=== PATIENT | female | born 1970 | race Hispanic/Latino ===

== ENCOUNTER 2019-04-17 22:05 | Emergency (ER) | payer SELFPAY ==
[2019-04-17 23:20] LABS: Urine Blood TRACE (NEG); Urine Glucose NEGATIVE (NEG); Urine Protein TRACE (NEG); Urine Specific Gravity 1.015 (1.005-1.030); Urine pH 8.5 (5.0-7.0)
[2019-04-17 23:22] LABS: Absolute Lymphocytes (CBC) 1.7 K/uL (0.7-4.9); Basophils % 0.5 % (0-1.3); Hematocrit 31.9 % (36.0-45.0); MPV 8.3 fL (7.6-11.3); RBC Red Blood Cell Count 3.65 M/uL (3.86-4.86)
[2019-04-17 23:33] LABS: ALT/SGPT 46 U/L (12-78); AST/SGOT 73 U/L (15-37); Albumin 3.6 g/dL (3.4-5.0); Alkaline Phosphatase 98 U/L (45-117); BUN Blood Urea Nitrogen 14 mg/dL (7-18); Bicarbonate 25 mmol/L (21-32); Bilirubin Direct < 0.1 mg/dL (0-0.2); Bilirubin Total 0.3 mg/dL (0.2-1.0); Glucose Level 121 mg/dL (74-106); Lipase 169 U/L (73-393); Protein, Total 7.4 g/dL (6.4-8.2); Sodium Level 140 mmol/L (136-145)
--- NOTE | 2019-04-18 00:59 | ER ---
Nurse's Notes [facility] Name: Fatoumata Meléndez Age: 48 yrs Sex: Female : 1970 Arrival Date: 04/17/2019 Time: 22:07 Bed 5 Private MD: Diagnosis: Cholelithiasis;Abdominal and pelvic pain Presentation: 04/17 22:19 Presenting complaint: Patient states: Abdominal pain that began at 2030 tonight; Denies lp1 any N/V, constipation, diarrhea; States pain is intermittent. Transition of care: patient was not received from another setting of care. Onset of symptoms was April 17, 2019 at 20:30. Risk Assessment: Do you want to hurt yourself or someone else? Patient reports no desire to harm self or others. Initial Sepsis Screen: Does the patient meet any 2 criteria? No. Patient's initial sepsis screen is negative. Does the patient have a suspected source of infection? No. Patient's initial sepsis screen is negative. Care prior to arrival: None. 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 - Social history:: Smoking status: Patient/guardian denies using tobacco. - Ebola Screening: : No symptoms or risks identified at this time. Screenin:22 Abuse screen: Denies threats or abuse. Denies injuries from another. Nutritional lp1 screening: No deficits noted. Tuberculosis screening: No symptoms or risk factors identified. Fall Risk None identified. Assessment: 22:22 General: Appears in no apparent distress. comfortable, Behavior is calm, cooperative, lp1 appropriate for age. Pain: Complains of pain in abdomen Pain currently is 0 out of 10 on a pain scale. Neuro: Level of Consciousness is awake, alert, obeys commands, Oriented to person, place, time, situation. Cardiovascular: Patient's skin is warm and dry. Respiratory: Respiratory effort is even, unlabored. GI: Abdomen is non-distended, Bowel sounds present X 4 quads. Abd is soft and non tender X 4 quads. : No signs and/or symptoms were reported regarding the genitourinary system. EENT: No signs and/or symptoms were reported regarding the EENT system. Derm: Skin is pink, warm \T\ dry. Musculoskeletal: Circulation, motion, and sensation intact. 23:29 Reassessment: Patient appears in no apparent distress at this time. Patient is alert, lp1 oriented x 3, equal unlabored respirations, skin warm/dry/pink. Patient aware of pending order to have CT Patient denies pain at this time. 04/18 00:51 Reassessment: Patient appears in no apparent distress at this time. Patient and/or lp1 family updated on plan of care and expected duration. Pain level reassessed. Patient is alert, oriented x 3, equal unlabored respirations, skin warm/dry/pink. Aware of waiting for CT results. 01:09 Reassessment: Patient and/or family updated on plan of care and expected duration. Pain ea level reassessed. Patient is alert, oriented x 3, equal unlabored respirations, skin warm/dry/pink. Discharge instruction given to patient, verbalized the understanding of instruction . Pt left ED ambulatory accompanied by family, tolerating well. Vital Signs: 04/17 22:21 BP 114 / 70; Pulse 71; Resp 18; Temp 97.8(O); Pulse Ox 100% on R/A; Weight 77.11 kg; lp1 Height 5 ft. 1 in. (154.94 cm); Pain 10/10; 23:29 BP 99 / 61; Pulse 68; Resp 16; Pulse Ox 100% on R/A; Pain 0/10; lp1 04/18 00:50 BP 107 / 68; Pulse 74; Resp 16; Pulse Ox 100% on R/A; lp1 01:00 BP 110 / 67; Pulse 70; Resp 18; Pulse Ox 98% ; ea 04/17 22:21 Body Mass Index 32.12 (77.11 kg, 154.94 cm) lp1 ED Course: 04/17 22:07 Patient arrived in ED. es 22:10 Singh Walsh PA is PHCP. jr8 22:10 Cody Elam MD is Attending Physician. jr8 22:18 Maddie Lopez, RN is Primary Nurse. lp1 22:21 Triage completed. lp1 22:21 Arm band placed on. lp1 22:22 Patient has correct armband on for positive identification. Placed in gown. Pulse ox lp1 on. NIBP on. 23:28 Radiology exam delayed due to lab results not completed at this time. (BUN/Creatinine) kw1 test not completed at this time. 23:33 Inserted saline lock: 20 gauge in right antecubital area, using aseptic technique. ag4 Blood collected. 04/18 00:22 CT Abd/Pelvis - IV Contrast Only In Process Unspecified. EDMS 00:58 Earnest Sherman MD is Referral Physician. jr8 00:58 Bertha Berry MD is Referral Physician. jr8 01:00 IV discontinued, intact, bleeding controlled, No redness/swelling at site. Pressure ea dressing applied. 01:04 No provider procedures requiring assistance completed. lp1 Administered Medications: No medications were administered Outcome: 00:58 Discharge ordered by MD. jr8 01:10 Discharged to home ambulatory, with family. ea 01:10 Condition: stable 01:10 Discharge instructions given to patient, Instructed on discharge instructions, follow up and referral plans. medication usage, Demonstrated understanding of instructions, follow-up care, medications, Prescriptions given X 2. 01:11 Patient left the ED. ea Signatures: Dispatcher [employer] EDLA Kerrie Gomes Laura, RN RN lp1 Singh Walsh PA PA jr8 Kimberlee Alexis RN RN ea Deepa Baez kw1 John Randall ag4 Corrections: (The following items were deleted from the chart) 04/17 23:29 23:28 Radiology exam delayed due to lab results not completed at this time. kw1 (BUN/Creatinine) kw1
--- NOTE | 2019-04-18 01:01 | EDPHYS ---
Physician Documentation [facility] Name: Fatoumata Meléndez Age: 48 yrs Sex: Female : 1970 Arrival Date: 04/17/2019 Time: 22:07 Bed 5 Private MD: ED Physician Cody Elam HPI: 04/18 00:35 This 48 yrs old Female presents to ER via Ambulatory with complaints of jr8 Abdominal Pain, Back Pain. 00:35 The patient presents with abdominal pain in the upper abdomen. Onset: The jr8 symptoms/episode began/occurred acutely, today. The symptoms radiate to back. Associated signs and symptoms: Pertinent positives: nausea. The symptoms are described as stabbing. Modifying factors: The symptoms are alleviated by nothing, the symptoms are aggravated by nothing. Severity of pain: At its worst the pain was moderate in the emergency department the pain is unchanged. The patient has not experienced similar symptoms in the past. The patient has not recently seen a physician. 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 - Social history:: Smoking status: Patient/guardian denies using tobacco. - Ebola Screening: : No symptoms or risks identified at this time. ROS: 04/18 00:35 Eyes: Negative for injury, pain, redness, and discharge, ENT: Negative for injury, jr8 pain, and discharge, Neck: Negative for injury, pain, and swelling, Cardiovascular: Negative for chest pain, palpitations, and edema, Respiratory: Negative for shortness of breath, cough, wheezing, and pleuritic chest pain, Back: Negative for injury and pain, MS/Extremity: Negative for injury and deformity, Skin: Negative for injury, rash, and discoloration, Neuro: Negative for headache, weakness, numbness, tingling, and seizure. Abdomen/GI: Positive for abdominal pain, nausea, Negative for vomiting, diarrhea, constipation, abdominal cramps, abdominal distension, anorexia, dysphagia, hematemesis, black/tarry stool, rectal pain, rectal bleeding, bowel incontinence, flatulence. Exam: 00:35 Eyes: Pupils equal round and reactive to light, extra-ocular motions intact. Lids and jr8 lashes normal. Conjunctiva and sclera are non-icteric and not injected. Cornea within normal limits. Periorbital areas with no swelling, redness, or edema. ENT: Nares patent. No nasal discharge, no septal abnormalities noted. Tympanic membranes are normal and external auditory canals are clear. Oropharynx with no redness, swelling, or masses, exudates, or evidence of obstruction, uvula midline. Mucous membranes moist. Neck: Trachea midline, no thyromegaly or masses palpated, and no cervical lymphadenopathy. Supple, full range of motion without nuchal rigidity, or vertebral point tenderness. No Meningismus. Cardiovascular: Regular rate and rhythm with a normal S1 and S2. No gallops, murmurs, or rubs. Normal PMI, no JVD. No pulse deficits. Respiratory: Lungs have equal breath sounds bilaterally, clear to auscultation and percussion. No rales, rhonchi or wheezes noted. No increased work of breathing, no retractions or nasal flaring. Abdomen/GI: Soft with mild tenderness to mid upper abdomen, with normal bowel sounds. No distension or tympany. No guarding or rebound. No evidence of tenderness throughout. Back: No spinal tenderness. No costovertebral tenderness. Full range of motion. Skin: Warm, dry with normal turgor. Normal color with no rashes, no lesions, and no evidence of cellulitis. MS/ Extremity: Pulses equal, no cyanosis. Neurovascular intact. Full, normal range of motion. Neuro: Awake and alert, GCS 15, oriented to person, place, time, and situation. Cranial nerves II-XII grossly intact. Motor strength 5/5 in all extremities. Sensory grossly intact. Cerebellar exam normal. Normal gait. Vital Signs: 04/17 22:21 BP 114 / 70; Pulse 71; Resp 18; Temp 97.8(O); Pulse Ox 100% on R/A; Weight 77.11 kg; lp1 Height 5 ft. 1 in. (154.94 cm); Pain 10/10; 23:29 BP 99 / 61; Pulse 68; Resp 16; Pulse Ox 100% on R/A; Pain 0/10; lp1 04/18 00:50 BP 107 / 68; Pulse 74; Resp 16; Pulse Ox 100% on R/A; lp1 01:00 BP 110 / 67; Pulse 70; Resp 18; Pulse Ox 98% ; ea 04/17 22:21 Body Mass Index 32.12 (77.11 kg, 154.94 cm) lp1 MDM: 04/17 22:23 Patient medically screened. 8 04/18 00:56 Data reviewed: vital signs, nurses notes, lab test result(s), radiologic studies, CT jr8 scan. Data interpreted: Pulse oximetry: on room air is 100 %. Interpretation: normal. 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 Response to treatment: the patient's symptoms have markedly improved after treatment. Special discussion: Based on the patient's Hx, exam, and Dx evaluation, there is no indication for emergent surgery or inpatient Tx. It is understood by the patient/guardian that if the Sx's persist or worsen they need to return immediately for re-evaluation. 04/17 22:32 Order name: Basic Metabolic Panel; Complete Time: 23:35 04/17 22:32 Order name: CBC with Diff; Complete Time: 23:24 [facility] 04/17 22:32 Order name: Creatinine for Radiology; Complete Time: 23:35 04/17 22:32 Order name: Hepatic Function; Complete Time: 23:35 04/17 22:32 Order name: Lipase; Complete Time: 23:35 [facility] 04/17 22:59 Order name: Urine Dipstick--Ancillary (enter results); Complete Time: 23:24 ar5 04/17 22:32 Order name: IV Saline Lock; Complete Time: 22:53 04/17 22:32 Order name: Labs collected and sent; Complete Time: 22:53 [facility] 04/17 22:32 Order name: CT Abd/Pelvis - IV Contrast Only [facility] 04/17 22:32 Order name: Urine Test (obtain specimen); Complete Time: 22:40 [facility] 04/17 22:32 Order name: Urine Dipstick-Ancillary (obtain specimen); Complete Time: 22:39 8 04/17 22:59 Order name: Urine --Ancillary (enter results); Complete Time: 23:24 ar5 Administered Medications: No medications were administered Disposition: 09:27 Co-signature as Attending Physician, Cody Elam MD I agree with the assessment and lou plan of care. Disposition: 04/18/19 00:58 Discharged to Home. Impression: Cholelithiasis, Abdominal and pelvic pain. - Condition is Stable. - Discharge Instructions: Cholelithiasis. - Prescriptions for Tylenol- Codeine #3 300-30 mg Oral Tablet - take 2 tablet by ORAL route every 6 hours As needed; 30 tablet. Zofran 4 mg Oral Tablet - take 1 tablet by ORAL route every 12 hours As needed; 20 tablet. - Medication Reconciliation Form, Thank You Letter, Antibiotic Education, Prescription Opioid Use form. - Follow up: Earnest Sherman MD; When: 1 week; Reason: Recheck today's complaints, Continuance of care, Re-evaluation by your physician. Follow up: Bertha Berry MD; When: 2 - 3 days; Reason: Recheck today's complaints, Continuance of care, Re-evaluation by your physician. - Problem is new. - Symptoms have improved. Signatures: Dispatcher [employer] EDCody Tran MD MD cha Pena, Laura, RN RN lp1 Singh Walsh PA PA jr8 Kimberlee Alexis RN RN ea Corrections: (The following items were deleted from the chart) 01:11 00:58 04/18/2019 00:58 Discharged to Home. Impression: Cholelithiasis; Abdominal and ea pelvic pain. Condition is Stable. Forms are Medication Reconciliation Form, Thank You Letter, Antibiotic Education, Prescription Opioid Use. Follow up: Earnest Sherman; When: 1 week; Reason: Recheck today's complaints, Continuance of care, Re-evaluation by your physician. Follow up: Bertha Berry; When: 2 - 3 days; Reason: Recheck today's complaints, Continuance of care, Re-evaluation by your physician. Problem is new. Symptoms have improved. jr8
--- NOTE | 2019-04-18 12:19 | RAD REPORT ---
EXAM DESCRIPTION: CT - Abdomen Pelvis W Contrast - 04/18/2019 2:34 am CLINICAL HISTORY: 48 years Female ABD PAIN COMPARISON: None TECHNIQUE: Images were obtained in axial, sagittal, and coronal planes. Intravenous contrast was adm inistered. This exam was performed according to our departmental dose-optimization program which includes use of Automated Exposure Control, adjustment of the mA and/or kV according to patient size and/or use of i terative reconstruction technique. FINDINGS: Mildly contracted gallbladder with gallstones and sludge. Probable fatty change involving the liver. Unremarkable spleen, pancreas, and adrenal glands bilaterally. Retained food and debris wi thin stomach. No obstructing renal calcifications bilaterally. No hydronephrosis bilaterally. Unremarkable bladder. Left renal cysts. Complex cystic appearance right ovary with enhancing component questioned. Appendix within normal limits. No bowel obstruction, perforation, or inflammation. Moderate constipat ion. No abnormality abdominal aorta or portal vein. No adenopathy or abnormal fluid collections. No abnormality lower lungs bilaterally. No acute osseous abnormality. IMPRESSION: Mildly contracted gallbladder with sludge and gallstones. Abnormal complex cystic appearance right ovary. Correlation with pelvic ultrasound would be needed fo r further characterization. Electronically signed by: Laura Mccarty MD 04/18/2019 12:29 AM CDT Due to temporary technical issues with the PACS/Fluency reporting system, reports are being signed by the in house radiologist as a courtesy to ensure prompt reporting. The interpreting radiologist is f ully responsible for the content of the report.
== END 2019-04-18 01:11 | disposition home or self-care (01) ==
LOC: ER 22:05
DX: K80.20 Calculus of gallbladder without cholecystitis without obstruction (principal); Z87.442 Personal history of urinary calculi
CPT/HCPCS: 36415; 74177; 80048; 80076; 81003; 81025; 83690; 85025; 99284; Q9967

== ENCOUNTER 2020-01-17 10:02 | Day surgery (SDC) | payer SELFPAY ==
[2020-01-16 15:24] LABS: Absolute Lymphocytes (CBC) 2.4 K/uL (0.7-4.9); Hematocrit 34.6 % (36.0-45.0); MPV 8.1 fL (7.6-11.3); RBC Red Blood Cell Count 3.91 M/uL (3.86-4.86)
--- NOTE | 2020-01-16 15:38 | RAD REPORT ---
EXAM DESCRIPTION: RAD - Chest Pa And Lat (2 Views) - 01/16/2020 3:29 pm CLINICAL HISTORY: preop, pending gallbladder removal COMPARISON: None TECHNIQUE: Frontal and lateral views of the chest were obtained. FINDINGS: The lungs are clear. Heart size is normal and central vasculature is within normal limit s. No pleural effusion or pneumothorax seen. Thoracic spine degenerative changes are present withou t acute finding muscle No aortic abnormality. IMPRESSION: No acute cardiopulmonary process.
[2020-01-16 15:40] LABS: ALT/SGPT 170 U/L (12-78); AST/SGOT 35 U/L (15-37); Albumin 3.9 g/dL (3.4-5.0); Alkaline Phosphatase 169 U/L (45-117); Amylase Level 91 U/L (25-115); BUN Blood Urea Nitrogen 11 mg/dL (7-18); Bicarbonate 27 mmol/L (21-32); Bilirubin Direct 0.1 mg/dL (0-0.2); Bilirubin Total 0.4 mg/dL (0.2-1.0); Glucose Level 89 mg/dL (74-106); Potassium 3.7 mmol/L (3.5-5.1); Protein, Total 8.3 g/dL (6.4-8.2); Sodium Level 138 mmol/L (136-145)
[2020-01-17] MEDS ORDERED: CEFOXITIN/SWI 1gm 1 GM/10 ML SYR ONE (10:24)
[2020-01-17] MEDS ORDERED: Ringers Lactate 1,000 ML IV ONE (10:24)
[2020-01-17] MEDS ORDERED: dexAMETHasone 10 MG/ML VIAL ONE (10:35)
[2020-01-17] MEDS ORDERED: MIDAZOLAM HCL 2 MG/2 ML INJ ONE (10:35)
[2020-01-17] MEDS ORDERED: ONDANSETRON 4 MG/2 ML VIAL ONE (10:35)
[2020-01-17] MEDS ORDERED: LIDOCAINE 2% MPF 5 ML VIAL ONE (10:35)
[2020-01-17] MEDS ORDERED: propofoL 200 MG/20 ML VIAL IV ONE (10:35)
[2020-01-17] MEDS ORDERED: FENTANYL CITR 250 MCG/5 ML ONE (10:35)
[2020-01-17] MEDS ORDERED: BUPIVACAINE 0.5% PF 10 ML VIAL ONE (10:35)
[2020-01-17] MEDS ORDERED: ROCURONIUM 50 MG/5 ML VIAL IV ONE (10:36)
--- NOTE | 2020-01-17 11:37 | EKG ---
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
[2020-01-17] MEDS ORDERED: NEOSTIGMINE 1 MG/ML -5 ML ONE (11:45)
[2020-01-17] MEDS ORDERED: KETOROLAC 30 MG/ML INJ ONE (11:45)
[2020-01-17] MEDS ORDERED: GLYCOPYRROLATE 0.2 MG/ML SYR ONE ×3 (11:45)
[2020-01-17] MEDS: MEPERIDINE HCL 25 MG/0.5 ML ONE ×2 (12:16→12:21)
[2020-01-17] MEDS ORDERED: CODEINE 30MG/APAP 300MG TAB ONE (14:39)
[2020-01-17 15:25] VITALS: BP 111/62; TEMP 96.9; O2SAT 99
--- NOTE | 2020-01-17 22:17 | OP ---
Date of Procedure: 01/17/2020 Surgeon: Rainer Rowley MD Medicare Contact Specialist: CARMEN Koch Preoperative Diagnoses: Chronic cholecystitis and cholelithiasis. Postoperative Diagnoses: Chronic cholecystitis and cholelithiasis. Procedure: Laparoscopic cholecystectomy. Estimated Blood Loss: Minimal. Specimens: Gallbladder. 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 Anesthesia: General. Complications: None. Disposition: Patient tolerated the procedure in stable condition, taken to Recovery in good general condition. Procedure In Detail: Patient was brought to the OR, placed in supine position. General anesthesia w as begun. Patient was prepped and draped in the usual sterile fashion. Marcaine 0.5% was infiltrate d locally. A 15-blade was used to make a 1 cm supraumbilical midline incision. Subcutaneous tissue was divided. Fascia was identified and divided and #1 Vicryl stay suture was placed. Peritoneal cav ity entered with sharp and blunt dissection. 12 mm trocar placed into the peritoneal cavity under di rect vision. Pneumoperitoneum was established. Three 5 mm trocars were placed, 1 in the epigastrium just to the right of midline and 2 in the right subcostal region. Laparoscopy revealed a chronicall y inflamed gallbladder. Fundus retracted superiorly. Infundibulum identified and retracted inferola terally. However, the cystic duct could not be visualized. There was a common bile duct which could be clearly seen. The cystic duct had merged into with the common bile duct. There was no clear nicolasa ne that could be dissected to separate this area, the cystic duct must be very small in this case and Mirizzi syndrome type of anatomy appeared. This was verified with another surgeon in the room for a second opinion. He agreed and therefore I decided to, once the cystic artery was identified, it was clipped on both sides and divided with vascular clips and then Endo-SREEKANTH stapling device was used to divide the infundibulum so as to prevent injury to the common bile duct. There was no stones in the cystic duct area or in the infundibulum. Everything that was present was pushed back into the gallbl adder and then Endo-SREEKANTH stapling device was used to divide that and then the gallbladder was dissecte d free from the fossa with cautery and bleeding controlled with cautery. The gallbladder was retriev ed through the umbilicus via an EndoCatch bag. Right upper quadrant was irrigated. Effluent was ivory ar. No evidence of bleeding or bile leakage appreciated. Subsequently, all trocars were removed und er direct vision. Stay sutures were tied to each other to reapproximate the fascial defect. Subcuta neous wounds were irrigated. Bleeding was controlled with cautery. 3-0 chromic used to reapproximate the subcutaneous tissue and close the skin. Sterile dressing applied. Patient was awakened and rustam en to Recovery in good general condition. Discharge Note: Patient will go to day surgery and home when stable. Disposition: Home. Condition: Stable. Discharge Instructions: Resume home medications and diet. Activity as tolerated. No heavy lifting. Remove outer dressing in 2 days. Shower. Keep wound clean and dry. Keep Steri-Strips on at all t imes. Follow up in my office in 1 week. Call for appointment. Tylenol No. 3 one tablet p.o. q.4 p.r.n. pa in and incentive spirometry as ordered. /MODL Voice ID: [id number] Report ID: [id number]
== END 2020-01-17 14:50 | disposition home or self-care (01) ==
LOC: OR 10:02
PROVIDERS: ATTEND Surgery
PROC: 0FT44ZZ Resection of Gallbladder, Percutaneous Endoscopic Approach (ICD-10-PCS; principal; 2020-01-17 11:15)
DX: K80.10 Calculus of gallbladder with chronic cholecystitis without obstruction (principal)
CPT/HCPCS: 36415; 71046; 80048; 80076; 82150; 84703; 85025; 88304; 93005; J1100; J2175; J2250; J2405; J2704; J2710; J3010; J7120